=== PATIENT | male | born 1985 | race Two or more races ===

== ENCOUNTER 2019-05-01 05:35 | Inpatient (IN) | payer MEDICAID, OTHER, SELFPAY ==
[~2019-05-01] VITALS: Ht 175.3 cm; Wt 90.6 kg
[~2019-05-01 05:35] MED LIST: GABA-531 PO
[2019-05-01 06:35] LABS: AMPHET/METH SCREEN,URINE NEGATIVE (NEGATIVE); BARBITURATE SCREEN, URINE NEGATIVE (NEGATIVE); BENZODIAZEPINES SCREEN,URINE NEGATIVE (NEGATIVE); CANNABINOID SCREEN,URINE NEGATIVE (NEGATIVE); COCAINE SCREEN,URINE NEGATIVE (NEGATIVE); METHADONE SCREEN, URINE NEGATIVE (NEGATIVE); OPIATE SCREEN,URINE NEGATIVE (NEGATIVE)
[2019-05-01 06:36] LABS: APPEARANCE,URINE CLEAR (CLEAR); BILIRUBIN,URINE NEGATIVE (NEGATIVE); GLUCOSE, URINE (UA) NEGATIVE (NEGATIVE); KETONES,URINE NEGATIVE (NEGATIVE); LEUKOCYTE ESTERASE ,URINE NEGATIVE (NEGATIVE); NITRATE,URINE NEGATIVE (NEGATIVE); OCCULT BLOOD,URINE NEGATIVE (NEGATIVE); PH,URINE 5.5 (5.0-8.0); PROTEIN,URINE NEGATIVE (NEGATIVE); UROBILINOGEN,URINE 0.2 mg/dL (<=1.0)
[2019-05-01 06:37] LABS: PHENCYCLIDINE SCREEN,URINE NEGATIVE (NEGATIVE)
[2019-05-01] MEDS ORDERED: ZOLPIDEM TARTRATE 10 MG TABLET PO PRN (09:30)
[2019-05-01] MEDS ORDERED: HALOPERIDOL 5 MG TABLET PO PRN (09:30)
[2019-05-01 12:17] VITALS: BP 136/83
[2019-05-01] MEDS ORDERED: ACETAMINOPHEN 325 MG TABLET PO PRN (13:45)
[2019-05-01] MEDS ORDERED: ALBUTEROL SULFATE HFA 90 MCG/PUFF 8 GM INHALER IH PRN (13:45)
[2019-05-01] MEDS ORDERED: BACITRACIN 28.4 GM OINTMENT TP PRN (13:45)
[2019-05-01] MEDS ORDERED: ONDANSETRON HCL 4 MG TABLET PO PRN (13:45)
[2019-05-01] MEDS ORDERED: CloNIDine HCL 0.1 MG TABLET PO PRN (13:45)
[2019-05-01] MEDS ORDERED: BENZOCAINE/MENTHOL LOZENGE MM PRN (13:45)
[2019-05-01] MEDS ORDERED: IBUPROFEN 600 MG TABLET PO PRN (13:45)
[2019-05-01] MEDS ORDERED: MAGNESIUM HYDROXIDE SUSPENSION 30 ML UDCUP PO PRN (13:45)
[2019-05-01] MEDS ORDERED: PETROLATUM,WHITE 28 GM JELLY TP PRN (13:45)
[2019-05-01] MEDS: LOPERAMIDE HCL 2 MG CAPSULE PO PRN (14:14)
[2019-05-01] MEDS: GABAPENTIN 300 MG CAPSULE PO SCH (17:38)
[2019-05-02] MEDS ORDERED: INFLUENZA VIRUS VACCINE QVS 2019-20 (3YR+)/PF 60 MCG/0.5 ML SYRINGE IM ONE (03:45)
[2019-05-02 07:42] LABS: CHOL/HDL RATIO 2.9 (4.2-7.3)
[2019-05-02] MEDS: GABAPENTIN 300 MG CAPSULE PO SCH ×3 (09:15→16:12)
[2019-05-02] MEDS: OMEPRAZOLE 20 MG CAPSULE PO SCH (09:15)
[2019-05-02] MEDS: DOCUSATE SODIUM 100 MG CAPSULE PO SCH (09:15)
[2019-05-02 10:03] VITALS: BP 136/81
[2019-05-02] MEDS ORDERED: ARIPiprazole 10 MG TABLET PO ONE (17:30)
[2019-05-02 19:39] VITALS: BP 125/74
[2019-05-03 09:00] VITALS: BP 121/70
[2019-05-03] MEDS: OMEPRAZOLE 20 MG CAPSULE PO SCH ×2 (09:00→09:05)
[2019-05-03] MEDS: DOCUSATE SODIUM 100 MG CAPSULE PO SCH ×2 (09:00→09:05)
[2019-05-03] MEDS: LORazepam 2 MG TABLET PO PRN ×2 (09:05→12:53)
[2019-05-03] MEDS: ARIPiprazole 10 MG TABLET PO SCH (09:05)
[2019-05-03] MEDS: GABAPENTIN 300 MG CAPSULE PO SCH ×3 (09:05→16:25)
[2019-05-03] MEDS: LOPERAMIDE HCL 2 MG CAPSULE PO PRN ×3 (14:40→19:20)
[2019-05-03 16:02] VITALS: BP 150/96
[2019-05-04] MEDS: MAG HYDROX/AL HYDROX/SIMETH ES 30 ML SUSPENSION UDCUP PO PRN ×2 (05:38→18:24)
[2019-05-04] MEDS ORDERED: BISMUTH SUBSALICYLATE 524 MG/30 ML SUSPENSION UDCUP PO ONE (06:00)
[2019-05-04] MEDS: GABAPENTIN 300 MG CAPSULE PO SCH ×4 (08:46→21:48)
[2019-05-04] MEDS: ARIPiprazole 10 MG TABLET PO SCH (08:46)
[2019-05-04] MEDS: OMEPRAZOLE 20 MG CAPSULE PO SCH (08:52)
[2019-05-04] MEDS: DOCUSATE SODIUM 100 MG CAPSULE PO SCH (08:52)
[2019-05-04 16:45] VITALS: BP 131/98
[2019-05-05] MEDS: GABAPENTIN 300 MG CAPSULE PO SCH ×3 (07:16→16:29)
[2019-05-05] MEDS: DOCUSATE SODIUM 100 MG CAPSULE PO SCH (07:18)
[2019-05-05] MEDS: OMEPRAZOLE 20 MG CAPSULE PO SCH (07:18)
[2019-05-05] MEDS ORDERED: ARIPiprazole 15 MG TABLET PO SCH ×2 (09:00→21:00)
[2019-05-05] MEDS ORDERED: GABAPENTIN 300 MG CAPSULE PO SCH (09:00)
[2019-05-05 13:20] VITALS: BP 105/77
[2019-05-05 16:30] VITALS: BP 129/82
[2019-05-05] MEDS ORDERED: CLOTRIMAZOLE 1% 10 ML SOLUTION TP SCH (17:00)
[2019-05-05] MEDS ORDERED: ARIP15TA2 PO (19:47)
[2019-05-05] MEDS ORDERED: GABA-531 PO (19:48)
[2019-05-05] MEDS ORDERED: DOCU-275 PO (20:38)
[2019-05-05] MEDS ORDERED: OMEP20 PO (20:38)
== END 2019-05-05 20:00 | disposition left against medical advice (07) | DRG 885 ==
LOC: EMS 05:35 → 3EI 09:43 → 3EC 17:15
PROVIDERS: ADMIT Psychiatry & Neurology Psychiatry; ATTEND Psychiatry & Neurology Psychiatry
DX: F25.0 Schizoaffective disorder, bipolar type (principal); F17.200 Nicotine dependence, unspecified, uncomplicated; F41.9 Anxiety disorder, unspecified; R45.87 Impulsiveness; G47.00 Insomnia, unspecified; K59.00 Constipation, unspecified; Z79.899 Other long term (current) drug therapy; Z91.19 Patient's noncompliance with other medical treatment and regimen; Z91.5 Personal history of self-harm; Z71.6 Tobacco abuse counseling; Z28.21 Immunization not carried out because of patient refusal

== ENCOUNTER 2019-06-08 21:05 | Emergency (ER) | payer SELFPAY ==
[~2019-06-08] VITALS: Ht 177.8 cm; Wt 95.0 kg
[~2019-06-08 21:05] MED LIST changes: +ARIP15TA2 PO; +DOCU-275 PO; +OMEP20 PO
[2019-06-08 22:23] VITALS: BP 129/62
[2019-06-08] MEDS ORDERED: ACETAMINOPHEN 325 MG TABLET PO ONE (22:30)
[2019-06-08] MEDS ORDERED: FLUORESCEIN SODIUM 1 MG STRIP OS ONE (23:00)
[2019-06-08] MEDS ORDERED: PROPARACAINE HCL 0.5% 15 ML OPHTHALMIC SOLUTION OS ONE (23:00)
== END 2019-06-08 23:45 | disposition home or self-care (01) ==
LOC: EMS 21:06
DX: S05.42XA Penetrating wound of orbit with or without foreign body, left eye, initial encounter (principal); S60.221A Contusion of right hand, initial encounter; F20.9 Schizophrenia, unspecified; F17.210 Nicotine dependence, cigarettes, uncomplicated; F12.90 Cannabis use, unspecified, uncomplicated; Z88.5 Allergy status to narcotic agent; Z88.6 Allergy status to analgesic agent; Y04.0XXA Assault by unarmed brawl or fight, initial encounter; Y93.89 Activity, other specified; Y92.89 Other specified places as the place of occurrence of the external cause; Y99.8 Other external cause status
CPT/HCPCS: 99173